=== PATIENT | male | born 1955 | race Caucasian/White ===

== ENCOUNTER 2018-06-03 09:49 | Outpatient (CLI) | payer MEDICARE, OTHER ==
[2018-06-03 10:28] LABS: eGFR (African) > 60; eGFR (Non-African) 50
== END 2018-06-03 09:50 ==
LOC: LAB 09:49
PROVIDERS: ATTEND Nurse Practitioner Family
DX: E83.52 Hypercalcemia (principal)
CPT/HCPCS: 36415; 80053